=== PATIENT | female | born 1935 | race Caucasian/White ===

== ENCOUNTER → 2016-08-17 | Outpatient (CLI) | payer MEDICARE, BC ==
[~2016-08-17] MED LIST: ADVIL200 M1 PO; AUGMENTIN PO; B-COMPLEX1 TAB PO; CALCIUM 500 + D1 TAB PO; FAMOTIDINE PO; LIPITOR PO; LORTAB 5/500 TA1 TA1 PO; OCEAN45 ML; SYNTHROID PO; TRIAMTERENE-HC1 EACH PO; TYLENOL325 M1 PO; VIACTIV TA1 TAB.CHE1 PO; ZADITOR5 M1 OP; [UNRECOGNIZED DRUG - OTHER]
--- NOTE | ~2016-08-17 | BD1 ---
[facility] A Service of [facility] & [facility] RADIOLOGY TEXT RESULTS PATIENT: HILDA FLORES LOCATION: [facility] : 35 UNIT #: [id number] AGE: [address]: Yaritza Coon MD SEX: F ORDER DR: [id number] [facility] [address] [place], [place] [address] [id number] O MR#: [id number] Acc #: [id number] NAME: HILDA FLORES : 1935 SEX: F STUDY DATE/TIME: 08/17/2016 11:54 UNIT: [facility] ROOM: STUDY DESCRIPTION: BD Dexa Bone Dens 1+ Site Attending Physician: Yaritza Coon M.D. Ordering Physician: Yaritza Coon M.D. Primary Care Physician: Yaritza Coon M.D. MEDICAL IMAGING REPORT This report is preliminary unless electronic signature is present EXAM Bone density spine/hip, 08/17/2016. HISTORY Post menopausal. On Synthroid. TECHNIQUE Bone mineral density scanning performed upper four lumbar vertebral segments and proximal femurs in 185-pound female. COMPARISON STUDIES No comparison. FINDINGS L1-L4: Bone mineral density 1.041 g/cm2 for a T-score of 0.1 standard deviations below mean for a reference population of normal young individuals and Z-score 2.7 standard deviations above the mean for an age-matched population. In the proximal left femur, total bone mineral density is 0.958 g/cm2 for a T-score of 0.1 standard deviation above the mean for a reference population of normal young individuals and Z-score 2.2 standard deviations above the mean for age-matched population. In left femoral neck specifically, bone mineral density is 0.928 g/cm2 for a T-score of 0.7 standard deviation above the mean for an age-matched population and a Z-score 3.1 standard deviation above the mean for an age-matched population. IMPRESSION Normal bone mineral density in upper 4 lumbar vertebral segments overall and in proximal left femur, inclusive of femoral neck. Please correlate for the patient's clinical status. Continued surveillance is recommended. STS. [facility] A Service of [facility] & [facility] RADIOLOGY TEXT RESULTS PATIENT: HILDA FLORES LOCATION: [facility] #: [id number] : 35 UNIT #: [id number] AGE: [address]: Yaritza Coon MD SEX: F ORDER DR: Dictated by... Carlos Shah M.D. THIS IS AN ELECTRONICALLY VERIFIED REPORT Carlos Shah M.D. at 08/18/2016 7:54 AM GIO/dolly TD: 08/17/2016 14:19 JOB #: [id number] MEDICAL IMAGING REPORT COPY
== END | disposition home or self-care (01) ==
LOC: CWCC 11:30
DX: Z13.820 Encounter for screening for osteoporosis (principal); Z78.0 Asymptomatic menopausal state
CPT/HCPCS: 77080